=== PATIENT | female | born 1945 | race Caucasian/White ===

== ENCOUNTER 2020-06-30 16:02 | Emergency (ER) | payer MEDICARE ==
[~2020-06-30] VITALS: Ht 167.6 cm; Wt 72.5 kg
--- NOTE | 2020-06-30 16:47 | NUR ---
75 yo f came in after falling today while hiking. patient states she fell on R. shoulder. patient complains of pain and inability to move. patient denies hitting head or loss of conciousness. Sreedhar ERNANDEZ at bedside for evaluation. Patient hooked up to monitor. PATRICIA ROBERSON. Patient to go to xray.
[2020-06-30 17:43] VITALS: BP 178/88
--- NOTE | 2020-06-30 18:21 | NUR ---
Patient/Caregiver given discharge instructions and they have confirmed that they understand the instructions. Patient ambulatory with steady gait.
== END 2020-06-30 18:22 | disposition home or self-care (01) ==
LOC: ED 16:50
DX: S42.031A Displaced fracture of lateral end of right clavicle, initial encounter for closed fracture (principal); W01.0XXA Fall on same level from slipping, tripping and stumbling without subsequent striking against object, initial encounter; Y93.89 Activity, other specified; Y92.89 Other specified places as the place of occurrence of the external cause; Y99.8 Other external cause status
CPT/HCPCS: 29105; 99283